=== PATIENT | female | born 1935 | race Caucasian/White ===

== ENCOUNTER 2018-12-24 07:18 | Day surgery (SDC) | payer MEDICARE, OTHER, MEDICAID ==
[2018-12-24] MEDS ORDERED: LIDOCAINE 2% (SDV) 5 ML INJ (08:42)
[2018-12-24] MEDS ORDERED: PROPOFOL 40 ML (08:42)
[2018-12-24] MEDS ORDERED: FENTAnyl 50 MCG/ML VIAL (08:43)
[2018-12-24] MEDS ORDERED: PROPOFOL 20 ML (08:45)
[2018-12-24] MEDS ORDERED: hydrALAzine 20 MG INJ ×2 (08:46→09:48)
[2018-12-24] MEDS ORDERED: ONDANSETRON 4 MG INJ IV (09:30)
[2018-12-24] MEDS ORDERED: hydrALAzine 20 MG INJ IV (09:30)
== END 2018-12-24 11:58 | disposition home or self-care (01) ==
LOC: GIL 07:18
DX: K64.9 Unspecified hemorrhoids (principal); K63.89 Other specified diseases of intestine; D50.0 Iron deficiency anemia secondary to blood loss (chronic); I10 Essential (primary) hypertension; E11.9 Type 2 diabetes mellitus without complications; Z86.73 Personal history of transient ischemic attack (TIA), and cerebral infarction without residual deficits
CPT/HCPCS: 43239; 82962; 88305; 88312